=== PATIENT | female | born 1935 | race Caucasian/White ===

== ENCOUNTER → 2018-06-09 | Outpatient (CLI) | payer MEDICARE, BC ==
[~2018-06-09] MED LIST: ACETAMINOPHEN325 M1 PO; ADVAIR HFA 1112 UNIT INH; ASPIRIN EC500 M1 PO; ASPIRIN EC81 M1 PO; AUGMENTIN 875875 MG PO; CLONAZEPAM0.125 MG PO; CLOPIDOGREL75 MG PO; COZAAR 50 MG TA50 M1 PO; DITROPAN XL10 M1 PO; FENOFIBRATE160 MG PO; FLOVENT DISKUS50 MCG IH; IBUPROFEN 200200 M1 PO; K-DUR10 MEQ PO; LASIX 20 MG TAB20 MG PO; MULTIVITAMINS1 EAC7 PO; NITROSTAT0.4 MG SL; OMEPRAZOLE40 MG PO; PEPCID20 MG PO; PRAVASTATIN SOD40 MG PO; PREDNISONE 10 M10 MG PO; PROAIR HFA8.5 GM INH; TOPROL XL50 MG PO
--- NOTE | 2018-06-09 14:12 | CARDNUC ---
[place] [address] CARDIAC NUCLEAR IMAGING REPORT Name: ALFREDO SANCHEZ Room: [facility]#: [id number] Admission: 06/09/18 Attend Phys: Ari Ramos, Discharge: Date of : 35 Date of Service: 06/09/18 1412 Report #: [id number] THIS REPORT FOR: //name// APPROVED REPORT Study performed: 06/09/2018 10:04:32 Exam: Nuclear Stress Test Indication: Chest pain Patient Location: Out-Patient Stress Tech: Marie Orellana Stress Nurse: Alicja Enamorado RN NM Tech:EUGENIA Cheung Ht: 5 ft 1 in Wt: 130 lbs BSA: 1.57 m2 BMI: 24.56 Medical History Medical History: cad, pci, aortic valve insuff. chf, htn Medications: asa-81, lasix, losartan, metoprolol, k-dur, pravachol, ntg Allergies: levofloxacin, pcn, lyrica, fentanyl Cardiac Risk Factors: age, cad, hyperlipidemia, hypertension, family hx Previous Cardiac Procedures: pci Exercise History: Sedentary Meds Held (24 hrs): metoprolol Stress Test Details Stress Test: Pharmacologic stress testing performed using 0.4 mg of regadenoson per 5 mL given IV over 10 seconds. Reason for pharmacologic stress test: physical limitation. HR Resting HR: 80 bpm Max Heart Rate (APMHR): 138 bpm Max HR Achieved: 113 bpm Target HR (85% APMHR): 117 bpm % of APMHR: 81 Recovery HR: 104 bpm BP Resting BP: 120/63 mmHg Max BP: 200/61 mmHg ECG Resting ECG: [place] [address] CARDIAC NUCLEAR IMAGING REPORT Name: ALFREDO SANCHEZ Room: [facility]#: [id number] Admission: 06/09/18 Attend Phys: Ari Ramos, Discharge: Date of : 35 Date of Service: 06/09/18 1412 Report #: [id number] Stress ECG: Sinus Tachycardia ST Change: None Arrhythmia: None Recovery ECG: Sinus Rhythm Recovery ST Change: None Recovery Arrhythmia: be run SVT Clinical Reason for Termination: Completed protocol Exercise duration: 0 min sec Exercise capacity: 1 METs The patient tolerated Lexiscan infusion without significant symptoms. Nurse Comments pt on o2 and has generalized weakness Stress ECG Conclusion The baseline 12-lead EKG show sinus rhythm without significant ST segment abnormality. EKGs obtained during and post Lexiscan infusion show sinus rhythm and sinus tachycardia with no significant ST segment changes when compared baseline. There was a single 5 beat run of superventricular tachycardia in recovery. NM EXAM: Myocardial Perfusion REST/STRESS Imaging Protocol: Rest Tc-99m/Stress Tc-99m 1 day Resting Data Rest SPECT myocardial perfusion imaging was performed in supine position 30 minutes following the intravenous injection of 10.8 mCi of Tc-99m Sestamibi. Time of rest injection: 804 Date: 06/09/2018 The images were gated to evaluate regional wall motion and calculate left ventricular ejection fraction. Administration Route: IV Administration Site: Right Arm Pharmacologic Stress Pharmacologic stress test was performed by injecting Regadenoson 0.4 mg IV push followed by the intravenous injection of 34.6 mCi of Tc-99m Sestamibi. Time of stress injection: 1000 Date: 06/09/2018 Administration Route: IV Administration Site: Right Arm Gated Stress SPECT was performed 40 minutes [place] [address] CARDIAC NUCLEAR IMAGING REPORT Name: SANCHEZALFREDO ELVA Room: [facility]#: [id number] Admission: 06/09/18 Attend Phys: Ari Ramos, Discharge: Date of : 35 Date of Service: 06/09/18 1412 Report #: [id number] The images were gated to evaluate regional wall motion and calculate left ventricular ejection fraction. Prone imaging was performed. Study Quality Study: Good Artifact: Mild Breast artifact Study Data At rest, the left ventricular ejection fraction was 70%.. Post stress, the left ventricular ejection was 66%.. TID = 0.92. Perfusion Myocardial perfusion images obtained in the supine position at rest and post Lexiscan stress show a small in size moderate intensity mid to distal anterior wall defect that resolves with post stress prone imaging suggesting breast attenuation artifact. No other significant fixed or reversible defects were identified. Wall Motion Normal left ventricular wall motion. Nuclear Conclusion ECG Findings: negative for ischemia Clinical Findings: negative for ischemia Nuclear Findings: negative for ischemia Exercise Capacity: not assessed Left Ventricular Function: normal Risk Study: low Myocardial perfusion images show no defect to suggest infarct or ischemia. Left ventricular systolic function appears normal on gated studies. This is a low risk study. <Conclusion> The baseline 12-lead EKG show sinus rhythm without significant ST segment abnormality. EKGs obtained during and post Lexiscan infusion show sinus rhythm and sinus tachycardia with no significant ST segment changes when compared baseline. There was a single 5 beat run of superventricular tachycardia in recovery. <ELECTRONICALLY SIGNED> By: Ari Ramos MD, FACC 06/09/18 1412 [id number] Ari Ramos MD, FACC /INF
== END ==
LOC: M.NUC 05-19 15:01
DX: R07.9 Chest pain, unspecified (principal); I25.10 Atherosclerotic heart disease of native coronary artery without angina pectoris; I11.0 Hypertensive heart disease with heart failure; I50.9 Heart failure, unspecified; E78.5 Hyperlipidemia, unspecified; Z88.8 Allergy status to other drugs, medicaments and biological substances; Z88.1 Allergy status to other antibiotic agents; Z88.0 Allergy status to penicillin; Z82.49 Family history of ischemic heart disease and other diseases of the circulatory system